=== PATIENT | male | born 1945 | race Caucasian/White ===

== ENCOUNTER 2017-02-27 07:12 | Day surgery (SDC) | payer OTHER, BC ==
[2017-02-25 11:48] VITALS: BMI 30.8
[2017-02-27] MEDS ORDERED: PROPOFOL 20 ML ONE ×3 (07:22)
[2017-02-27] MEDS ORDERED: LIDOCAINE HCL/PF 2% SDV 5ML VIAL ONE (07:22)
[2017-02-27 09:11] VITALS: BP 146/85; PULSE 63; TEMP 97.9
== END 2017-02-27 09:10 | disposition home or self-care (01) ==
LOC: FASU-ENDO 07:12
PROVIDERS: ATTEND Internal Medicine Gastroenterology
PROC: 0DJD8ZZ Inspection of Lower Intestinal Tract, Via Natural or Artificial Opening Endoscopic (ICD-10-PCS; principal; 2017-02-27 08:20)
DX: Z86.010 Personal history of colon polyps (principal); K57.30 Diverticulosis of large intestine without perforation or abscess without bleeding; K64.4 Residual hemorrhoidal skin tags

== ENCOUNTER 2022-06-18 11:04 | Observation (INO) | payer OTHER, BC ==
[2022-06-18] MEDS ORDERED: ALBUTEROL SO4 2.5/IPRATROPIUM 0.5 INH SOL 3 ML VIAL.NEB. NEB ONE ×2 (11:34→11:57)
[2022-06-18 12:47] LABS: HEMATOCRIT 45.3 % (35.4-49); HEMOGLOBIN 15.6 G/dL (11.7-16.9); MCH 31.7 pg (25.7-33.7); MCHC 34.3 g/dl (32.0-35.9); MEAN CELL VOLUME 92.3 fl (80-96); MEAN PLT VOLUME 7.4 fl (7.5-11.1); PLATELET COUNT 268.8 10^3/uL (134-434); RBC 4.91 10^6/uL (4.00-5.60); RDW 13.8 % (11.9-15.9); WHITE BLOOD COUNT 17.6 10^3/uL (4.0-10.8)
[2022-06-18 12:50] LABS: ALBUMIN 3.2 g/dl (3.4-5.0); BILIRUBIN,TOTAL 1.7 mg/dl (0.2-1); CALCIUM 8.6 mg/dl (8.5-10); CREATININE 0.9 mg/dl (0.55-1.3); TOT PROT 6.9 g/dl (6.4-8.2)
[2022-06-18 13:24] LABS: EPITHELIAL CELLS FEW /hpf; PLATELET ESTIMATE ADEQUATE
[2022-06-18] MEDS ORDERED: OSELTAMIVIR PHOSPHATE 75 MG CAPSULE PO ONE (14:23)
[2022-06-18] MEDS ORDERED: OSELTAMIVIR PHOSPHATE 75 MG CAPSULE ONE (14:43)
[2022-06-18] MEDS: INSULIN SLIDING SCALE (NOVOLOG) 1 VIAL SQ SCH (16:30)
[2022-06-18 17:01] VITALS: BMI 31.3
[2022-06-18] MEDS ORDERED: guaiFENesin/D-METHORPHAN HB 10 ML UNIT-DOSE CUPS PO PRN (18:28)
[2022-06-18] MEDS: ALBUTEROL SO4 2.5/IPRATROPIUM 0.5 INH SOL 3 ML VIAL.NEB. NEB SCH (18:41)
[2022-06-18] MEDS: LORATADINE 10 MG TABLET PO SCH (18:46)
[2022-06-18] MEDS: TAMSULOSIN HCL 0.4 MG CAP PO SCH (21:35)
[2022-06-18] MEDS ORDERED: ASPIRIN COATED 81 MG TABLET.EC PO SCH (22:00)
[2022-06-18] MEDS ORDERED: ROSUVASTATIN CA 10 MG TABLET PO SCH (22:00)
[2022-06-18 22:26] VITALS: RESP 18
[2022-06-19] MEDS: INSULIN SLIDING SCALE (NOVOLOG) 1 VIAL SQ SCH ×3 (05:43→11:16)
[2022-06-19] MEDS: ALBUTEROL SO4 2.5/IPRATROPIUM 0.5 INH SOL 3 ML VIAL.NEB. NEB SCH ×3 (05:44→12:17)
[2022-06-19 08:39] LABS: CALCIUM 8.3 mg/dl (8.5-10); CREATININE 0.9 mg/dl (0.55-1.3); MAGNESIUM 2.1 mg/dL (1.8-2.4); PHOSPHOROUS 3.1 mg/dl (2.5-4.9)
[2022-06-19 08:40] LABS: HEMOGLOBIN 13.8 G/dL (11.7-16.9); MCH 31.3 pg (25.7-33.7); MCHC 33.7 g/dl (32.0-35.9); MEAN CELL VOLUME 92.9 fl (80-96); MEAN PLT VOLUME 7.4 fl (7.5-11.1); PLATELET COUNT 287.4 10^3/uL (134-434); RBC 4.41 10^6/uL (4.00-5.60); RDW 13.6 % (11.9-15.9); WHITE BLOOD COUNT 12.8 10^3/uL (4.0-10.8)
[2022-06-19] MEDS ORDERED: SODIUM CHLORIDE 1,000 ML IV SCH (09:00)
[2022-06-19] MEDS: TAMSULOSIN HCL 0.4 MG CAP PO SCH (09:42)
[2022-06-19] MEDS: LORATADINE 10 MG TABLET PO SCH (09:42)
[2022-06-19] MEDS ORDERED: OSELTAMIVIR PHOSPHATE 75 MG CAPSULE PO SCH (10:00)
[2022-06-19] MEDS ORDERED: amLODIPine BESYLATE 2.5 MG TABLET (FP) PO SCH (10:00)
[2022-06-19] MEDS ORDERED: ENOXAPARIN NA (PORCINE) 40 MG/0.4 ML DISP.SYRIN SQ SCH (10:00)
[2022-06-19 13:53] VITALS: BP 128/74; PULSE 71; TEMP 98.4
== END 2022-06-19 15:02 | disposition home or self-care (01) ==
LOC: FER 11:04 → FM/S 14:35 → INTOOBSV 14:35 → FM/S 15:28
PROVIDERS: ADMIT Internal Medicine; ATTEND Internal Medicine
PROC: 3E0F7GC Introduction of Other Therapeutic Substance into Respiratory Tract, Via Natural or Artificial Opening (ICD-10-PCS; principal; 2022-06-18)
DX: J09.X2 Influenza due to identified novel influenza A virus with other respiratory manifestations (principal); R09.02 Hypoxemia; Z91.018 Allergy to other foods; E11.9 Type 2 diabetes mellitus without complications; N40.0 Benign prostatic hyperplasia without lower urinary tract symptoms; I10 Essential (primary) hypertension; E78.5 Hyperlipidemia, unspecified; R05.9 Cough, unspecified
CPT/HCPCS: 0241U-QW; 36415; 71046-TC-FY; 80048; 80053; 81003; 81015; 83735; 84100; 85027; 87040; 87086; 93005; 94640; 97116-GP; 97162-GP; 99285-25; G0378

== ENCOUNTER 2023-12-30 14:58 | Observation (INO) | payer BC, OTHER ==
[2023-12-30 15:56] VITALS: BMI 29.5
[2023-12-30 16:09] LABS: BASO % 0.2 % (0-2.0); EOS % 0.3 % (0-4.5); HEMATOCRIT 46.3 % (35.4-49); LYMPH % 5.2 % (8-40); MCH 32.1 pg (25.7-33.7); MCHC 34.6 g/dl (32.0-35.9); MEAN CELL VOLUME 92.8 fl (80-96); MEAN PLT VOLUME 7.2 fl (7.5-11.1); MONO % 6.7 % (3.8-10.2); NEUT % 87.6 % (42.8-82.8); PLATELET COUNT 273 10^3/uL (134-434); RBC 4.99 M/mm3 (4.00-5.60); RDW 13.5 % (11.9-15.9); WHITE BLOOD COUNT 15.6 K/mm3 (4.0-10.0)
[2023-12-30 16:28] LABS: POTASSIUM 5.1 mmol/L (3.5-5.1)
[2023-12-30 16:31] LABS: BLOOD UREA NITROGEN 16.6 mg/dL (7-18); CALCIUM 9.8 mg/dL (8.5-10.1); MAGNESIUM 1.9 mg/dL (1.8-2.4)
[2023-12-30 16:34] LABS: CREATININE 1.4 mg/dL (0.55-1.3)
[2023-12-30 16:36] LABS: BILIRUBIN,TOTAL 1.3 mg/dL (0.2-1); TOT PROT 7.1 g/dl (6.4-8.2)
[2023-12-30] MEDS ORDERED: ONDANSETRON 4 MG/2 ML VIAL ONE (16:45)
[2023-12-30] MEDS: ONDANSETRON 4 MG/2 ML VIAL IVPUSH ONE (16:48)
[2023-12-30] MEDS: SODIUM CHLORIDE 0.9% 1000 ML INFUS.BAG IV ONE (18:20)
[2023-12-30 22:17] VITALS: RESP 18
[2023-12-30 23:01] LABS: URINE APPEARANCE CLEAR; URINE BILIRUBIN NEGATIVE (NEGATIVE); URINE COLOR YELLOW; URINE GLUCOSE (UA) NEGATIVE (NEGATIVE); URINE KETONE TRACE (NEGATIVE); URINE LEUK ESTERASE NEGATIVE (NEGATIVE); URINE NITRITE NEGATIVE (NEGATIVE); URINE PROTEIN NEGATIVE (NEGATIVE); URINE UROBILINOGEN 0.2 mg/dL (0.2-1.0)
[2023-12-30] MEDS: MAGNESIUM SULF 50% (8.12 MEQ/2 ML-1 GM VIAL) IVPB ONE (23:47)
[2023-12-31] MEDS: HEPARIN NA (PORCINE) 5,000 UNITS/ML 1ML VIAL SQ SCH (06:08)
[2023-12-31] MEDS: SODIUM CHLORIDE 1,000 ML IV SCH (06:11)
[2023-12-31] MEDS: INSULIN ASPART SLIDING SCALE (NOVOLOG) 1 VIAL SQ SCH (06:12)
[2023-12-31 06:34] LABS: HEMATOCRIT 45.1 % (35.4-49); HEMOGLOBIN 15.6 GM/dL (11.7-16.9); MCH 32.1 pg (25.7-33.7); MCHC 34.5 g/dl (32.0-35.9); MEAN CELL VOLUME 93.1 fl (80-96); MEAN PLT VOLUME 7.5 fl (7.5-11.1); PLATELET COUNT 268 10^3/uL (134-434); RBC 4.85 M/mm3 (4.00-5.60); RDW 13.2 % (11.9-15.9); WHITE BLOOD COUNT 12.8 K/mm3 (4.0-10.0)
[2023-12-31 06:58] LABS: POTASSIUM 4.5 mmol/L (3.5-5.1)
[2023-12-31 07:01] LABS: BLOOD UREA NITROGEN 13.2 mg/dL (7-18); CALCIUM 8.8 mg/dL (8.5-10.1); MAGNESIUM 2.1 mg/dL (1.8-2.4)
[2023-12-31 07:02] LABS: ALBUMIN 3.8 g/dl (3.4-5.0)
[2023-12-31 07:06] LABS: BILIRUBIN,TOTAL 1.2 mg/dL (0.2-1); CHOLESTEROL 131 mg/dL (50-200)
[2023-12-31 07:07] LABS: LDL CHOLESTEROL (ONLY SJRH) 70 mg/dL (5-100)
[2023-12-31 07:09] LABS: HDL CHOLESTEROL 50 mg/dL (40-60)
[2023-12-31] MEDS: amLODIPine BESYLATE 2.5 MG TABLET (FP) PO SCH (09:03)
[2023-12-31] MEDS: TAMSULOSIN HCL 0.4 MG CAP PO SCH (09:03)
[2023-12-31 12:09] VITALS: BP 145/77; PULSE 70; TEMP 98.4
[2023-12-31] MEDS ORDERED: BACITRACIN ZINC 15 GM TUBE TOPICAL OINTMENT TP SCH (14:15)
[2023-12-31] MEDS ORDERED: ROSUVASTATIN CA 10 MG TABLET PO SCH (22:00)
== END 2023-12-31 14:23 | disposition home or self-care (01) ==
LOC: JER 14:58 → JERBED 18:14 → J4S 20:13
PROVIDERS: ADMIT Internal Medicine; ATTEND Internal Medicine
PROC: 3E03329 Introduction of Other Anti-infective into Peripheral Vein, Percutaneous Approach (ICD-10-PCS; principal; 2023-12-30)
PROC: 3E033GC Introduction of Other Therapeutic Substance into Peripheral Vein, Percutaneous Approach (ICD-10-PCS; 2023-12-30)
PROC: 3E0337Z Introduction of Electrolytic and Water Balance Substance into Peripheral Vein, Percutaneous Approach (ICD-10-PCS; 2023-12-30)
DX: R55 Syncope and collapse (principal); S09.90XA Unspecified injury of head, initial encounter; N17.9 Acute kidney failure, unspecified; W18.39XA Other fall on same level, initial encounter; Y93.89 Activity, other specified; Y92.002 Bathroom of unspecified non-institutional (private) residence as the place of occurrence of the external cause; R42 Dizziness and giddiness; I10 Essential (primary) hypertension; E78.5 Hyperlipidemia, unspecified; E11.9 Type 2 diabetes mellitus without complications; N40.0 Benign prostatic hyperplasia without lower urinary tract symptoms; Z98.890 Other specified postprocedural states; Z90.49 Acquired absence of other specified parts of digestive tract; Z87.891 Personal history of nicotine dependence
CPT/HCPCS: 0241U-QW; 36415; 70450-TC; 71045-TC-FY; 72125-TC; 80053; 80061; 81003; 82550; 82553; 82962; 83735; 84443; 84484; 85025; 85027; 87040; 93005; 93010; 93306-TC; 96361; 96365; 96372; 96375; 99285-25; G0378; J1644

== ENCOUNTER 2024-12-27 06:35 | Observation (INO) | payer OTHER ==
[2024-12-08 08:51] VITALS: BMI 29.5
[2024-12-27 12:31] LABS: MCHC 33.5 g/dl (32.3-36.5); MEAN CELL VOLUME 93.5 fl (79.0-92.2); MEAN PLT VOLUME 9.3 fl (9.4-12.4); RDW 12.4 % (12.2-16.6)
[2024-12-27 14:08] VITALS: RESP 18
[2024-12-27] MEDS: INSULIN ASPART SLIDING SCALE (NOVOLOG) 1 VIAL SQ SCH (17:56)
[2024-12-27] MEDS: TAMSULOSIN HCL 0.4 MG CAP PO SCH (21:10)
[2024-12-27] MEDS: ROSUVASTATIN CA 10 MG TABLET PO SCH (21:10)
[2024-12-27] MEDS: amLODIPine BESYLATE 2.5 MG TABLET (FP) PO SCH (21:50)
[2024-12-27] MEDS ORDERED: LEVOMEFOLAT CA PO SCH (22:00)
[2024-12-27] MEDS ORDERED: MECOBAL PO SCH (22:00)
[2024-12-27] MEDS ORDERED: [UNRECOGNIZED DRUG - OTHER] PO SCH (22:00)
[2024-12-27] MEDS ORDERED: B6 PHOS PO SCH (22:00)
[2024-12-28 09:07] LABS: ABSOLUTE IMMATURE GRANULOCYTES 0.04 x10^3/uL (0.0-0.031); BASOPHILS # 0.05 x10^3/uL (0.01-0.08); EOSINOPHIL % 3.0 % (0.8-7.0); EOSINOPHILS # 0.23 x10^3/uL (0.04-0.54); MCHC 33.2 g/dl (32.3-36.5); MEAN CELL VOLUME 93.1 fl (79.0-92.2); MEAN PLT VOLUME 9.7 fl (9.4-12.4); MONOCYTE # 0.88 x10^3/uL (0.30-0.82); MONOCYTE % 11.5 % (5.3-12.2); RDW 12.3 % (12.2-16.6)
[2024-12-28 10:08] LABS: CO2 22.0 mmol/L (21-32)
[2024-12-28 10:09] LABS: GLUCOSE,RANDOM 162.0 mg/dL (74-106)
[2024-12-28 10:11] LABS: ALK PHOS 87.0 U/L (45-117); CREATININE 0.9 mg/dL (0.55-1.3); SGPT/ALT 53.0 U/L (13-61)
[2024-12-28 10:13] LABS: SGOT/AST 36.0 U/L (15-37)
[2024-12-28 10:14] LABS: TOT PROT 6.3 g/dl (6.4-8.2)
[2024-12-28] MEDS: OMEGA-3 ACID ETHYL ESTERS (FATTY-ACIDS) 1 GM CAPSULE (FP) PO SCH (10:23)
[2024-12-28] MEDS: CHOLECALCIFEROL (VIT D3) 1,000 UNIT (25 MCG) TABLET PO SCH (10:23)
[2024-12-28 10:57] VITALS: BP 138/77; PULSE 66; TEMP 97.8
== END 2024-12-28 11:08 | disposition home or self-care (01) ==
LOC: JASU-ENDO 06:35 → J2C 10:54 → J8W 14:22
PROVIDERS: ADMIT Internal Medicine Gastroenterology; ATTEND Nurse Practitioner Family
PROC: 0DB78ZX Excision of Stomach, Pylorus, Via Natural or Artificial Opening Endoscopic, Diagnostic (ICD-10-PCS; 2024-12-27)
PROC: 0DB68ZX Excision of Stomach, Via Natural or Artificial Opening Endoscopic, Diagnostic (ICD-10-PCS; 2024-12-27)
PROC: 0DBH8ZZ Excision of Cecum, Via Natural or Artificial Opening Endoscopic (ICD-10-PCS; 2024-12-27)
PROC: 0DBL8ZZ Excision of Transverse Colon, Via Natural or Artificial Opening Endoscopic (ICD-10-PCS; 2024-12-27)
PROC: 0DBM8ZZ Excision of Descending Colon, Via Natural or Artificial Opening Endoscopic (ICD-10-PCS; 2024-12-27)
PROC: 0DB98ZX Excision of Duodenum, Via Natural or Artificial Opening Endoscopic, Diagnostic (ICD-10-PCS; principal; 2024-12-27 08:45)
DX: K91.840 Postprocedural hemorrhage of a digestive system organ or structure following a digestive system procedure (principal); K57.90 Diverticulosis of intestine, part unspecified, without perforation or abscess without bleeding; D47.02 Systemic mastocytosis; I25.10 Atherosclerotic heart disease of native coronary artery without angina pectoris; E78.5 Hyperlipidemia, unspecified; E11.9 Type 2 diabetes mellitus without complications; I10 Essential (primary) hypertension; Z87.891 Personal history of nicotine dependence; Z90.49 Acquired absence of other specified parts of digestive tract; Z91.030 Bee allergy status; Z85.46 Personal history of malignant neoplasm of prostate
CPT/HCPCS: 36415; 80053; 82962; 83735; 84100; 85025; 85027; 88305-TC; 88342-TC; G0378